=== PATIENT | female | born 2005 | race Caucasian/White ===

== ENCOUNTER 2024-05-14 22:50 | Emergency (ER) | payer MEDICAID ==
[~2024-05-14] VITALS: Ht 154.9 cm; Wt 71.0 kg
[2024-05-14 22:57] VITALS: O2SAT 100
[2024-05-14 23:38] VITALS: BP 133/80; PULSE 71; RESP 14; TEMP 97.9; O2SAT 99
== END 2024-05-15 06:41 | disposition home or self-care (01) ==
LOC: ER 22:50
DX: L30.9 Dermatitis, unspecified (principal); M79.641 Pain in right hand
CPT/HCPCS: 99281